=== PATIENT | female | born 1985 | race Caucasian/White ===

== ENCOUNTER → 2019-02-17 | Outpatient (CLI) | payer OTHER ==
--- NOTE | 2019-02-17 15:26 | Diagnostic Imaging Report ---
INDICATION: Lump in the left breast as well as pain and swelling to the left breast. COMPARISON: Correlation is made with diagnostic mammogram earlier the same day. EXAMINATION: Sonographic interrogation of the area of lump in the upper left breast was performed. In addition, upper outer left breast at the area of pain and swelling was evaluated. FINDINGS: No sonographic abnormality is seen. No solid or cystic mass is detected. IMPRESSION: No sonographic abnormality is detected. Continued close clinical and self breast exam is recommended to confirm stability of the area of palpable abnormality. ACR BI-RADS Category 1: Negative. Result letter will be mailed to the patient. Note: At least 10% of breast cancer is not imaged by mammography. Dictated by: Dictated on workstation # [id number]
--- NOTE | 2019-02-17 15:31 | Diagnostic Imaging Report ---
INDICATION: Left breast pain and swelling as well as a lump. COMPARISON: No prior mammograms are available for comparison. TECHNIQUE: 2-D and 3-D bilateral diagnostic mammography was performed with CAD. FINDINGS: Scattered fibroglandular densities are identified bilaterally. There are benign calcifications present. BB markers were placed at the area of lump as well as pain and swelling in the upper and outer aspect of the left breast. No underlying abnormality is seen. No mass or suspicious microcalcifications are seen. Axillae are unremarkable. IMPRESSION: BI-RADS 0 No mammographic features suspicious for malignancy are identified. Even so, directed sonographic interrogation of the areas of concern in the left breast is recommended and will be performed today. ACR BI-RADS Category 0: Incomplete. (Needs additional imaging evaluation). Result letter will be mailed to the patient. Note: At least 10% of breast cancer is not imaged by mammography. Dictated by: Dictated on workstation # [id number]
== END ==
LOC: RAD 14:02
PROVIDERS: ATTEND Nurse Practitioner Family
DX: N63.20 Unspecified lump in the left breast, unspecified quadrant (principal)
CPT/HCPCS: 76642; 77066